=== PATIENT | male | born 1940 | race Caucasian/White ===

== ENCOUNTER 2024-07-27 14:22 | Inpatient (IN) | payer MEDICARE, SELFPAY ==
[2024-07-27] VITALS (8 sets, daily range): BP systolic 119–133; BP diastolic 56–80; PULSE 66–74; RESP 12–25; TEMP 36.3–36.4; O2SAT 99–100; BMI 25.9; BMI 25.7
--- NOTE | 2024-07-27 18:14 | EDS_ITS ---
HPI History of Present Illness Chief Complaint: Abn Labs [facility] Medical History (Updated 07/27/24 @ 16:[address] Collin Shaikh MD) HANNAH (acute kidney injury) Iron deficiency anemia due to chronic blood loss Encounter for chemotherapy management Encounter for education Anemia Hearing loss Diabetes Regional lymph node metastasis present [place] High cholesterol Kidney disease Home Medications ?Medication ?Instructions ?Recorded ?Last Taken ?Type aspirin 81 mg tablet,delayed 81 mg PO DAILY 05/08/24 Unknown History release (Adult Low Dose Aspirin) atorvastatin 40 mg tablet 40 mg PO DAILY 05/08/24 Unknown History pioglitazone 15 mg tablet 15 mg PO DAILY 05/08/24 Unknown History ondansetron 4 mg disintegrating 4 mg PO Q8H PRN nausea and 05/24/24 Unknown Rx tablet vomiting #30 tabs Allergy/AdvReac Type Severity Reaction Status Date / Time No Known Allergies Allergy Verified 07/27/24 14:26 Surgical History PEG (percutaneous endoscopic gastrostomy) status History of embolic filter insertion History of left knee replacement History of tonsillectomy Social History household members: spouse current occupational status: retired Smoking Status: Former smoker quit date: 11/08/69 alcohol intake: never EXAM Physical Exam Const Vital Signs: 07/27/24 14:23 07/27/24 16:22 Temperature 97.6 F L Temperature Source Temporal Pulse Rate 73 66 Respiratory Rate 15 18 Blood Pressure 125/56 H 130/56 H Blood Pressure Mean 79 80 Pulse Ox 100 99 Oxygen Delivery Method Room Air Room Air MDM MDM MDM Narrative Medical decision making narrative: HISTORY OF PRESENT ILLNESS: 83-year-old male presents with concern for abnormal labs. Per triage note patient was getting blood work done to see if he can start chemo. Labs showed kidney dysfunction. REVIEW OF SYSTEMS: Pertinent positives: Abnormal labs Pertinent negatives: Headache, chest pain, abdominal pain, decreased urination, back pain, fever, PHYSICAL EXAM: Nursing triage notes reviewed, Vital signs reviewed Constitutional: please see mdm HENT: MMM Eyes: Pupils equal round and reactive to light, Extraocular muscles intact Neck: No stridor, no JVD, full neck ROM Lungs: Clear to auscultation, No wheezing or rales. No increased work of breathing, no conversational dyspnea, no accessory muscle use, no nasal flaring. No respiratory distress noted Heart: Regular rate and rhythm, No murmurs, No rubs and No gallops, 2+ distal pulses (radial, femoral, posterior tibial) in all extremities Abdomen: Soft, there is no tenderness, rigidity, rebound or guarding, no obvious peritoneal signs, no palpable pulsatile abdominal masses, no auscultated abdominal bruit : No CVAT Extremities: No edema Neuro: No focal neurological deficits, cranial nerves II through XII intact, 5/5 strength in all extremities. Intact sensation to light touch in all extremities, 2+ reflexes bilateral patella tendons. Normal gait. No ataxia. Skin: No rash or lesions noted MEDICAL DECISION MAKING: Chief Complaint: Abnormal labs External records reviewed: Labs reviewed from earlier today. CBC showed no leukocytosis, severe anemia worse from prior, no thrombocytopenia BMP showed significant BUN/creatinine elevation with a BUN of 132 and creatinine of 4 up from a baseline of BUN of 58 and creatinine 1.82 magnesium was also elevated Factors affecting care: Hypopharyngeal cancer, lymph node metastasis Consults: Internal medicine MDM Narrative: The patient was initially hemodynamically stable, afebrile and nontoxic- appearing. Exam unremarkable. After review of prior labs concern for severe acute kidney injury. Will admit the patient for fluid resuscitation and further studies. Discussed with hospitalist Dr. oNe who accept the patient. She requested to place a Mejias, add a stool occult blood sample which was done. Patient was appropriate for floor admission. The patient and/or family, caregivers express understanding. The patient and/or family, caregivers agrees with the plan. Shared decision making: I will have a discussion with the patient and or visitors regarding risk/benefits of further testing or admission. They will be made aware of of the risk/benefits inherent in this decision they will be given the opportunity to voice understanding. Total critical care time today provided was at least 0 minutes. This excludes separately billable procedures. Critical care time (if documented) is secondary to the patient having high probability of clinically significant/life threatening deterioration in the patient's condition which required my urgent intervention. Impression: 1. History of cancer 2. HANNAH on CKD 3. Tachypnea Dispo: Admit to floor This note was generated with [employer] dictation software. It may contain incorrect words, spelling, and punctuation that were not noted in review of the chart prior to signing. Discharge Plan Triage Chief Complaint: Abn Labs ED Provider: Eric Rodriguez Dx/Rx/DC Orders Primary Care Provider: Salty Melchor
--- NOTE | 2024-07-27 19:11 | PCM.HP.STD ---
HPI - General General Date of Admission: 07/27/24 Date of Service: 07/27/24 Chief Complaint: Abnormal labs HPI Narrative VINITA GRACE, is a 83 M who presented to the emergency department at [facility] on 07/27/2024 at the direction of his oncologist (Dr. Shaikh) for abnormal labs. 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 ENT recommended postoperative radiation and consideration for chemotherapy sensitization therapy. He did have neoadjuvant chemo radiation but only after 1 week of therapy needed urgent total laryngectomy. He was being evaluated by oncology today and plan was to start adjuvant radiation on July 31, 2024 with reevaluation for chemosensitization today by oncology. Unfortunately his labs revealed HANNAH on CKD and decreased performance status so he was sent to the emergency department for evaluation of his HANNAH. Based on his finding of HANNAH today, oncology did not feel that he was a candidate for pilot station based chemosensitization and current plan is to proceed with adjuvant radiation therapy. He is currently tube feed dependent and states he takes 5 cans daily but of unknown type of tube feed and he is unsure how much free water he is currently getting. Vital signs on presentation demonstrated temperature of 97.6, heart rate 73, respiratory rate 15, blood pressure of 125/56 and pulse ox is 100% on room air. CBC shows a normal white count however he is anemic with a hemoglobin of 7.3 down from 8.4 on 05/24/2024. This is normocytic. Platelet count is normal. Chemistry panel shows a normal electrolytes however his BUN is markedly elevated at 132 with a creatinine of 4.02. (Baseline creatinine appears to be between 1.7 and 1.85 as of recently). Serum glucose was elevated at 134 and he is diabetic. With his drop in hemoglobin I have asked the emergency department to obtain a guaiac and it is pending at the time of admission. UA is also pending. I recommended that a Mejias be placed in emergency department and this was performed. He was given IV fluids and request for admission was made. [facility] Medical History (Updated 07/27/24 @ 20:[address] Yuki Noe DO) CKD stage 3b, GFR 30-44 ml/min HANNAH (acute kidney injury) Iron deficiency anemia due to chronic blood loss Encounter for chemotherapy management Encounter for education Anemia Hearing loss Diabetes Regional lymph node metastasis present [place] High cholesterol Kidney disease Home Medications ?Medication ?Instructions ?Recorded ?Last Taken ?Type aspirin 81 mg tablet,delayed 81 mg PO DAILY 05/08/24 Unknown History release (Adult Low Dose Aspirin) atorvastatin 40 mg tablet 40 mg PO DAILY 05/08/24 Unknown History pioglitazone 15 mg tablet 15 mg PO DAILY 05/08/24 Unknown History ondansetron 4 mg disintegrating 4 mg PO Q8H PRN nausea and 05/24/24 Unknown Rx tablet vomiting #30 tabs Allergy/AdvReac Type Severity Reaction Status Date / Time No Known Allergies Allergy Verified 07/27/24 14:26 unable to obtain Surgical History (Updated 07/27/24 @ 19:[address] Yuki Noe DO) History of tracheostomy H/O partial thyroidectomy History of radical neck dissection PEG (percutaneous endoscopic gastrostomy) status History of embolic filter insertion History of left knee replacement History of tonsillectomy Social History (Updated 07/27/24 @ 19:[address] Yuki Noe DO) household members: spouse housing: house current occupational status: retired Smoking Status: Former smoker quit date: 11/08/69 alcohol intake: former details: Quit drinking in 2012 substance use type: does not use ROS Constitutional Constitutional: Denies anorexia, change in weight, chills, fatigue, fever(s), malaise, night sweats, weakness or other Eyes Eyes: Denies blurry vision, change in eye color, change in vision, discharge from eye(s), double vision, erythema, eye pain, loss of vision or other ENT HEENT: Denies abnormal hearing, dysphagia, ear pain, epistaxis, headache(s), hearing loss, nasal congestion, nasal discharge, post nasal drip, sinus pressure, sore throat or other Cardiovascular Cardiovascular: Denies chest pain, claudication, dyspnea on exertion, edema, lightheadedness, orthopnea, palpitations, paroxysmal nocturnal dyspnea, rapid heart rate, syncope or other Respiratory/Chest Respiratory/Chest: Denies cough, dyspnea, excessive phlegm production, hemoptysis, productive cough, shortness of breath at rest, shortness of breath with exertion, wheezing or other Gastrointestinal Gastrointestinal: Denies abdominal pain, coffee ground emesis, constipation, diarrhea, dyspepsia, hematemesis, hematochezia, loose stools, melena, nausea, vomiting or other Genitourinary Genitourinary: Denies burning urination, difficulty urinating, dysuria, hematuria, nocturia, urinary frequency, urinary hesitancy, urinary incontinence, urinary urgency or other Musculoskeletal Musculoskeletal: Denies arthralgias, back pain, joint pain, joint stiffness, joint swelling, myalgias, neck pain or other Neurologic Neurologic: Denies abnormal gait, abnormal speech, confusion, disequilibrium, dizziness, focal weakness, headache(s), numbness, paresthesias, seizure-like activity, seizures, syncope, tingling, tremor(s) or other Psychiatric Psychiatric: Denies anxiety, depression, homicidal ideation, suicidal ideation or other Endocrine Endocrinology: Denies change in body appearance, cold intolerance, excessive sweating, heat intolerance, polydipsia, polyuria or other Hematologic/Lymphatic Hematologic/Lymphatic: Denies anemia, easy bleeding, easy bruising, lymphadenopathy or other Allergic/Immunologic Allergic/Immunologic: Denies rhinitis, hives, eczemia, asthma or other Vital Signs Vital Signs Vital Signs: 07/27/24 14:23 07/27/24 16:22 Temperature 97.6 F L Temperature Source Temporal Pulse Rate 73 66 Respiratory Rate 15 18 Blood Pressure 125/56 H 130/56 H Blood Pressure Mean 79 80 Pulse Ox 100 99 Oxygen Delivery Method Room Air Room Air Weight Weight: 68.492 kg Body Mass Index (BMI) 25.9 Physical Exam Const alert, oriented x3, no apparent distress and average body habitus; Negative for healthy appearing Constitutional Narrative: Elderly, white male, lying in bed, tracheostomy in place and patient is unable to phonate however answers questions by shaking head and writing down information General Appearance: cooperative HEENT normocephalic, head/scalp atraumatic and hearing grossly normal bilaterally HEENT Narrative: Mucous membranes are slightly dry and thrush is noted, Mallampati 3 Eyes PERRL and EOMs intact bilaterally; Negative for conjunctivae normal Eyes Narrative: Conjunctiva are pale bilaterally, no scleral icterus Neck supple Neck Narrative: Tracheostomy in place with capping device but this is not a speaking valve, no significant drainage, trachea midline Resp normal respiratory effort, no retractions, no use of accessory muscles and clear to auscultation bilaterally Auscultation: Negative for rales, rhonchi or wheezes Cardio regular rate, regular rhythm, S1 normal heart sound, S2 normal heart sound, no murmurs, no rub, no gallops and no clicks GI normal to inspection, nondistended, normoactive bowel sounds, soft to palpation and non-tender GI Narrative: PEG tube in place with no significant drainage around insertion site Extremity Extremity Narrative: 1+ pitting edema bilateral lower extremities to knees, pitting is doughy in nature, no cyanosis or clubbing Skin Skin Narrative: Skin is pale Neuro oriented x3, moves all extremities and no focal motor deficits Neuro Narrative: Patient is unable to speak verbally Speech: Negative for speech normal Psych Psych Narrative: Appears frustrated but interacts appropriately Assessment & Plan Assessment/Plan (1) HANNAH (acute kidney injury): (2) Iron deficiency anemia due to chronic blood loss: (3) Regional lymph node metastasis present: (4) Cancer of overlapping sites of hypopharynx: (5) Edema: (6) Thrush: PLAN: Plan HANNAH on CKD stage IIIb -Baseline serum creatinine appears to run between 1.7 and 1.85 -Serum creatinine on admission was greater than 4 -UA is pending -Will check urine sodium and creatinine -Check retroperitoneal ultrasound -Mejias placed -Will initially treat with aggressive hydration giving IV fluids at 125 cc/h with LR -Repeat BMP in a.m. -No current need for PILLOWCASE CUTTER -Electrolytes are all stable and patient without acidosis -Unclear how much free water patient is getting via his PEG -Patient states he has been tolerating tube feeds well and having no nausea or vomiting and no insensible losses -It does appear that he follows up with nephrology as an outpatient in [place] -Previous renal biopsy done in 2015 showed mainly renal medullary with small fragment of cortical medullary junction having glomerular changes diagnostic of IgA nephropathy -Was previously treated with prednisone -Will consult nephrology in light of his previous history of IgA nephropathy Acute on chronic anemia -Recent hemoglobin has been between 8 and 9 -Hemoglobin on presentation is 7.3 and the thought is that he is dehydrated so I do anticipate his counts will drop -Guaiac is pending -Iron studies are pending -Has previously been iron deficient -Start Protonix IV 40 mg twice daily -Recent PEG placement so could have irritation around PEG site -Patient is not anticoagulated other than aspirin and will hold for now -Type and screen -May need GI involvement depending on the above -Will cycle hemoglobin every 6 Bilateral lower extremity edema -May be related to malnutrition -High risk for DVT with malignancy -Check bilateral lower extremity Dopplers -Patient is on Actos which may also contribute to edema in the lower extremities Oral thrush -Nystatin swish and spit 4 times daily x 7 days 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, 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, M0) -Management per radiation therapy and chemotherapy -Per most recent documentation from oncology today he is not a candidate for chemosensitization with pilot station therapy and current plan will be for radiation therapy which is to be initiated on 07/31/2024 -Remote history of alcohol and tobacco abuse -Currently has PEG tube for feeding -Patient unclear of tube feed for free water -Consult dietitian for assistance History of IgA nephropathy -See above Hyperlipidemia -Hold home atorvastatin DM-2 -Hold home Actos -SSI -Accu-Cheks as ordered DVT prophylaxis -Will hold chemoprophylaxis for now given anemia -SCDs CODE STATUS -Full code for now however further conversation needs to be held when his is present as he deferred his in the emergency department and she was not there Charges/Coding Visit Charges Inpatient E&M: 96657 Init Hosp L3
[2024-07-27] MEDS: 0.9% Normal Saline (1000mL) 1,000 ML 999 ML IV (19:42)
[2024-07-27] MEDS: Lidocaine Jelly 2% 20 ML Syringe (URO-JET) 1 APPLIC TOPICAL (19:42)
--- NOTE | 2024-07-27 20:12 | ED.RN ---
Pt did not want to go over med list with this RN, pt wrote his will be coming tomorrow and was waving his notepad around and would hardly let this RN look at it.
[2024-07-27 20:14] LABS: Bacteria 0 SEEN /hpf (None Seen); Mucous, Urine 0 SEEN /hpf (<or=2+)
[2024-07-27 20:17] LABS: Color, Urine Yellow (Yellow); Glucose, Dipstick Normal (Normal); Ketone-Dipstick Negative (Negative); Leukocyte Esterase-Dipstick Negative /ul (Negative); Nitrite-Dipstick Negative (Negative); Occult Blood-Urine 250 /ul (Negative); Protein-Dipstick 500 mg/dl (Negative); Specific Gravity, Urine 1.015 (1.002-1.030); Urine Bilirubin Dipstick Negative (Negative); Urine Clarity Clear (Clear); Urine Urobilinogen Normal (Normal)
[2024-07-27 20:25] LABS: Red Blood Cells-Urine 5-10 SEEN /hpf (0-5); Squamous Epithelial Cells - UA 0-5 SEEN /hpf (0-5); White Blood Cells 10-25 SEEN /hpf (0-5)
[2024-07-27 20:32] LABS: Ferritin 194 ng/mL (26-388); Iron 15 ug/dL (65-175); Iron Binding Capacity,Total 221 ug/dL (250-450); PERCENT IRON SATURATION 6.8 % (15.0-55.0)
--- NOTE | 2024-07-27 21:00 | VDLE_ITS ---
Reason For Study: Bilateral leg swelling RIGHT LEFT GSV is normal. GSV is normal. CFV is compressible, spontaneous, phasic, CFV is compressible, spontaneous, phasic, competent and demonstrates normal competent, and demonstrates normal augmentation. augmentation. FV is compressible, spontaneous, phasic, FV is compressible, spontaneous, phasic, competent and demonstrates normal competent and demonstrates normal augmentation. augmentation. POP V is compressible, spontaneous, phasic, POP V is compressible, spontaneous, phasic, competent and demonstrates normal competent and demonstrates normal augmentation. augmentation. T/P Trunk is compressible. T/P Trunk is compressible. PTV is compressible. PTV is compressible. RT PerV is compressible. LT PerV is compressible. Procedure This is a venous duplex using B-mode, color flow and spectral Doppler. Exam performed portable in patient room. A preliminary report was called and/or faxed to [facility]. VL/Venous Duplex US - Dean Extrem Interpretation Summary Deep veins of the bilateral lower extremities are patent and compressible segme ntally. There is no evidence of bilateral lower extremity deep vein thrombosis. The bilateral great saphenous veins appear patent and compressible segmentally. Ordering Physician: Yuki Noe Referring Physician: Salty Melchor Performed By: Sruthi Bermudez RVT
--- NOTE | 2024-07-27 21:00 | US_ITS ---
EXAM: US RETROPERITONEAL LIMITED, RENAL CLINICAL INDICATION: sylvia TECHNIQUE: Limited grayscale and color Doppler sonographic evaluation of the retroperitoneum was performed. COMPARISON: No relevant prior studies available. FINDINGS: RIGHT KIDNEY: Unremarkable. No perinephric collection is demonstrated. Right kidney measures 9.4 cm length. Left kidney measures 9.8 cm length. No renal stones, masses or hydronephrosis. LEFT KIDNEY: See above. BLADDER: Bladder is decompressed with Mejias catheter in place. US/Kidney and Bladder IMPRESSION: Unremarkable kidneys. Decompressed bladder. Electronically Signed: Clive Montes MD at 2:45 EDT ,
[2024-07-27] MEDS: Pantoprazole Sodium 40 MG in 0.9% Normal Saline (100mL MB+) 100 ML 330 MG IV (21:51)
[2024-07-27] MEDS: Lactated Ringers 1,000 ML 125 ML IV (21:52)
[2024-07-27 22:22] LABS: Bedside Glucose 119 mg/dL (74-106)
[2024-07-28] VITALS (12 sets, daily range): BP systolic 120–143; BP diastolic 56–73; PULSE 60–71; RESP 16–20; TEMP 36.4–36.9; O2SAT 91–100
[2024-07-28 01:06] LABS: Hemoglobin 6.6 g/dL (13.0-16.5)
--- NOTE | 2024-07-28 02:03 | PCM.HOSP.N ---
Hospitalist Note Repeat Hgb 6.6, will order 2 u PRBC.
[2024-07-28] MEDS: 0.9% Saline Lock 10 ML Syringe IV (04:35)
[2024-07-28 08:55] LABS: Urine Sodium 36 mmol/L (Not Establ.)
[2024-07-28] MEDS: Nystatin 500,000 UNIT/5 ML PO.SYRINGE (WCH) 500000 UNIT PO (09:55)
[2024-07-28] MEDS: Lactated Ringers 1,000 ML 125 ML IV ×2 (09:55→21:44)
[2024-07-28] MEDS: Pantoprazole Sodium 40 MG in 0.9% Normal Saline (100mL MB+) 100 ML 330 MG IV ×2 (09:55→21:23)
--- NOTE | 2024-07-28 12:02 | PCM.PN.HOSP ---
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 Patient did not answer any questions for me as he has difficulty speaking after his recent procedures for his throat cancer. He was able to nod or shake his head for my questions. He denied any acute pain or discomfort but did feel very fatigued. His noted that he did appear more fatigued than his normal. She states that home health care has been following for him and last time he was hospitalized, it seems like his strength diminished quickly during the hospitalization. He and did note he was having some urine output. No other new concerns today. Objective Data Objective Data Vital Signs: Vital Signs Temp Pulse Resp BP Pulse Ox O2 Del Method 97.8 F 65 16 125/69 H 92 Room Air 07/28/24 08:57 07/28/24 08:57 07/28/24 08:57 07/28/24 08:57 07/28/24 08:57 07/28/24 09:07 Oxygen Delivery Method Room Air Weight: 68.1 kg Body Mass Index (BMI) 25.7 Intake & Output: Intake and Output for Last 24 Hours 07/26/24 07/27/24 07/28/24 23:59 23:59 23:59 Intake Total 1110 / 1110 1142.67 / 1142.67 Output Total 700 / 700 Balance 410 / 410 1142.67 / 1142.67 Lab / Micro Data 07/28/24 12:24 07/28/24 12:24 Labs: Laboratory Results - last 24 hr 07/27/24 08:25: Ur Random Sodium 36, Urine Creatinine 49.40 07/27/24 19:37: Hgb 7.0 L, Iron 15 L, TIBC 221 L, Iron Saturation 6.8 L, Ferritin 194, Blood Type B POSITIVE, Antibody Screen NEGATIVE, Crossmatch See Detail 07/27/24 19:55: Urine Color Yellow, Urine Clarity Clear, Urine pH 8.0, Ur Specific Muse 1.015, Urine Protein 500 H, Urine Glucose (UA) Normal, Urine Ketones Negative, Urine Occult Blood 250 H, Urine Nitrite Negative, Urine Bilirubin Negative, Urine Urobilinogen Normal, Ur Leukocyte Esterase Negative, Urine RBC 5-10 SEEN, Urine WBC 10-25 SEEN, Ur Squamous Epith Cells 0-5 SEEN, Urine Bacteria 0 SEEN, Urine Mucus 0 SEEN 07/27/24 22:02: POC Glucose 119 H 07/28/24 00:56: Hgb 6.6 L Micro: Microbiology 07/27/24 19:37 Stool Stool Occult Blood (ZACH) - Final Occult Blood Positive Radiography Diagnostic Testing: Radiology Impression Renal Ultrasound 07/27/24 21:00 IMPRESSION: Unremarkable kidneys. Decompressed bladder. Electronically Signed: Clive Montes MD at 2:45 EDT , Physical Exam Const alert, no apparent distress and average body habitus Constitutional Narrative: Elderly male, lying in bed, tracheostomy in place and patient unable to phonate however can answer questions by nodding or shaking his head. General Appearance: cooperative and comfortable HEENT normocephalic, head/scalp atraumatic, hearing grossly normal bilaterally and nasal mucous membranes and turbinates normal HEENT Narrative: Oral thrush noted. Eyes PERRL, EOMs intact bilaterally and conjunctivae normal Neck full ROM Neck Narrative: Tracheostomy in place with capping device but this is not a speaking valve, no drainage noted. Chest inspection of chest normal Resp normal respiratory effort, normal air movement, no use of accessory muscles and clear to auscultation bilaterally Cardio regular rate, regular rhythm, no murmurs and peripheral pulses 2+ throughout GI normal to inspection, nondistended, normoactive bowel sounds, soft to palpation, non-tender and non-distended Back/Spine normal ROM Extremity normal to inspection and full ROM Extremity Narrative: 1+ pitting edema in bilateral lower extremities, stable. Skin no rashes or lesions noted Neuro moves all extremities Sensorium / Orientation: awake and alert Psych mental status grossly normal Assessment & Plan Assessment/Plan (1) HANNAH (acute kidney injury): (2) Iron deficiency anemia due to chronic blood loss: (3) Thrush: (4) Edema: PLAN: Plan Patient is an 83-year-old male who presented [facility] ED on 07/27/2024 from the oncologist office with abnormal labs. 1. HANNAH on CKD stage IIIb, history of IgA nephropathy ? Nephrology following. Creatinine 4.02 on admit, baseline around 1.8. BUN 132. Renal ultrasound unremarkable. UA shows some protein and blood but this notably was a Mejias stable. IV fluid resuscitation given on admission, repeat creatinine 3.77 and BUN 110 on hospital day 2. Notably with history of IgA nephropathy back in 2014 confirmed on renal biopsy, was treated with prednisone then with improvement. Follows with outpatient nephrology in [place]. Patient notably was recently on Augmentin for surgical site infection and noticed itching with this; have concern for possible AIN versus typical prerenal etiology from fluid losses. Per nephro, if no significant improvement by tomorrow, will plan to start steroids. Monitor daily BMP and urine output. 2. Acute on chronic anemia ? GI consulted. Hemoglobin 7.3 on admit, dropped to 6.6 with IV fluid resuscitation. Baseline hemoglobin recently appears to be 8-9. S/p 2 units of packed red blood cells with repeat hemoglobin 9.2. Given high BUN and positive stool occult sample, have some concern for possible GI bleed. Monitor CBC daily. N.p.o. at midnight (hold tube feeds) for possible EGD tomorrow. Continue IV PPI twice daily for now. 3. Squamous of carcinoma of the hypopharynx ? Follows with outpatient oncology. Diagnosed in April 2024. Had selective radiation therapy and carboplatin chemosensitization on 05/24. S/p total laryngectomy with left hemithyroidectomy and left selective neck dissection on 06/20. Tracheostomy in place and PEG tube in for feedings. Plan was for postoperative radiation therapy sometime soon. Saw Oncology in the office on day of admission who noted that given his worsening status and chronic medical issues, he is no longer a candidate for [place] based chemotherapy. Outpatient follow up after discharge. 4. Bilateral lower extremity edema ? May be related to malnutrition but cannot rule out DVT. Lower extremity Dopplers ordered. 5. Oral thrush ? Nystatin swish and spit 4 times daily for 7 days. 6. Acute on chronic debility ? PT/OT/case management following. Chronic medical conditions: ? Hyperlipidemia: Holding home atorvastatin. ? Type 2 diabetes mellitus: Holding home Actos. Continue sliding scale insulin while inpatient. DVT prophylaxis: SCDs CODE STATUS: Full code, verified Expected disposition: TBD Total clinical time spent by myself addressing the patient's medical issues, reviewing all the data, and collaborating with patient's care team: 35 minutes. Charges/Coding Visit Charges Inpatient E&M: 13979 Subs Hosp L2
[2024-07-28 12:31] LABS: Hematocrit 29.8 % (40-54); Hemoglobin 9.2 g/dL (13.0-16.5); Mean Corp Hgb Conc 30.9 g/dL (32-36); Mean Corpuscular Hgb 26.4 pg (27.0-32.0); Mean Corpuscular Volume 85.4 fL (80-94); Mean Platelet Vol. 10.2 fl (6.2-12.0); Platelet Count 265 K/mm3 (150-450); RBC Distribution Width CV 15.8 % (11.6-14.6); RBC Distribution Width SD 49.2 fl (35.1-43.9); Red Blood Count 3.49 M/mm3 (4.6-6.2); White Blood Count 8.1 K/mm3 (4.4-11.0)
--- NOTE | 2024-07-28 13:07 | PCM.CONS.R ---
Assessment & Plan Assessment/Plan (1) HANNAH (acute kidney injury): PLAN: History of CKD stage IIIb. Baseline creatinine around 1.8 or so. Came with a creatinine of 4.0. No urinary symptoms prior to coming in. I reviewed his records from [facility]. He was discharged from there on the sixth. At that time his creatinine was 1.8. Renal ultrasound without any hydronephrosis. Urine analysis shows some protein, blood, possible this is a Dangelo sample. Hemoglobin was around 7.7 at the time of discharge, stable with a hemoglobin less than 7, s/p PRBC. It is possible this is prerenal HANNAH. He was started on Augmentin for surgical site infection. Has been on it since hospitalization. noticed more itching over the last several days. Differential diagnosis include prerenal from severe anemia versus Augmentin related AIN. Continue IV fluids. Follow-up on labs from today. If creatinine is better today with blood transfusion and IV fluids, likely prerenal. If creatinine continues to worsen, I may consider a short course of steroids just in case this is Augmentin related AIN. As per he has taken penicillins before but she is not sure if he took Augmentin before. Okay to DC Dangelo catheter. Discussed with hospitalist. HPI Consult Data Date of Consult: 07/28/24 HPI Narrative Reason for Consultation: Acute renal failure HPI Narrative: VINITA GRACE, is a 83 M who presents to the hospital with acute renal failure. Nephrology on consultation for acute on chronic renal failure. Somewhat complicated medical history recently. 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 Initially was supposed to get radiation, in June he was admitted at [facility] for laryngectomy, hemithyroidectomy, PEG tube placement for nutrition. He was being considered for chemo and radiation. Saw oncology for potential chemosensitization treatment before radiation. Protein to lab work showed creatinine of 4 and she was referred to the emergency room. He has known history of biopsy-proven IgA nephropathy, from a biopsy from 2014. Recently has not been on any treatment. Baseline creatinine around 1.8. Reviewed records from [facility]. When he was discharged from [facility] on the sixth of this month his creatinine was 1.8. Hemoglobin at that time was 7.7. He denies any obvious blood loss. Denies any urinary complaint such as dysuria, hematuria. He has been itching according to the . No obvious rash. He was prescribed Augmentin for surgical site infection. Reviewed medication list from discharge summary. As per , Zoloft was started about a month ago and he has been taking it on and off. Other than Augmentin and Zoloft, there is no other new medications. Denies taking NSAIDs. Currently appears comfortable. Received blood transfusion overnight. Labs from today are pending. [facility] Medical History CKD stage 3b, GFR 30-44 ml/min HANNAH (acute kidney injury) Iron deficiency anemia due to chronic blood loss Encounter for chemotherapy management Encounter for education Anemia Hearing loss Diabetes Regional lymph node metastasis present [place] High cholesterol Kidney disease Home Medications ?Medication ?Instructions ?Recorded ?Last Taken ?Type aspirin 81 mg tablet,delayed 81 mg feeding tube DAILY heart 05/08/24 Unknown History release (Adult Low Dose Aspirin) atorvastatin 40 mg tablet 40 mg feeding tube DAILY to lower 05/08/24 Unknown History cholesterol pioglitazone 15 mg tablet 15 mg feeding tube DAILY unknown 05/08/24 Unknown History Allergy/AdvReac Type Severity Reaction Status Date / Time No Known Allergies Allergy Verified 07/27/24 14:26 Family History unable to obtain Surgical History History of tracheostomy H/O partial thyroidectomy History of radical neck dissection PEG (percutaneous endoscopic gastrostomy) status History of embolic filter insertion History of left knee replacement History of tonsillectomy Social History (Updated 07/27/24 @ 19:[address] Yuki Noe, DO) household members: spouse housing: house current occupational status: retired Smoking Status: Former smoker quit date: 11/08/69 alcohol intake: former details: Quit drinking in 2012 substance use type: does not use ROS ROS Narrative Negative except above Physical Exam Narrative Alert awake oriented x 3 no obvious distress no JVD s1s2 no murmurs lungs clear abdomen soft no organomegaly no edema no cyanosis dangelo + Lab / Micro Data 07/28/24 12:24 07/28/24 12:24 Labs: Laboratory Results - last 24 hr 07/27/24 08:25: Ur Random Sodium 36, Urine Creatinine 49.40 07/27/24 19:37: Hgb 7.0 L, Iron 15 L, TIBC 221 L, Iron Saturation 6.8 L, Ferritin 194, Blood Type B POSITIVE, Antibody Screen NEGATIVE, Crossmatch See Detail 07/27/24 19:55: Urine Color Yellow, Urine Clarity Clear, Urine pH 8.0, Ur Specific [place] 1.015, Urine Protein 500 H, Urine Glucose (UA) Normal, Urine Ketones Negative, Urine Occult Blood 250 H, Urine Nitrite Negative, Urine Bilirubin Negative, Urine Urobilinogen Normal, Ur Leukocyte Esterase Negative, Urine RBC 5-10 SEEN, Urine WBC 10-25 SEEN, Ur Squamous Epith Cells 0-5 SEEN, Urine Bacteria 0 SEEN, Urine Mucus 0 SEEN 07/27/24 22:02: POC Glucose 119 H 07/28/24 00:56: Hgb 6.6 L 07/28/24 12:24: WBC 8.1, RBC 3.49 L, Hgb 9.2 L, Hct 29.8 L, MCV 85.4, MCH 26.4 L, MCHC 30.9 L, RDW Std Deviation 49.2 H, RDW Coeff of Noa 15.8 H, Plt Count 265, MPV 10.2 Micro: Microbiology 07/27/24 19:37 Stool Stool Occult Blood (ZACH) - Final Occult Blood Positive Imaging Radiology Impression Renal Ultrasound 07/27/24 21:00 IMPRESSION: Unremarkable kidneys. Decompressed bladder. Electronically Signed: Clive Montes MD at 2:45 EDT ,
[2024-07-28 13:12] LABS: ALB/GLOB Ratio 0.5 RATIO (0.9-2.4); AST(SGOT) 11 U/L (15-37); Alanine Aminotransfer ALT/SGPT 10 U/L (16-61); Albumin, Serum 2.3 g/dL (3.2-5.0); Alkaline Phosphatase 67 U/L (45-117); Anion Gap 9 (5-15); BUN 110 mg/dL (7-18); BUN/Creat Ratio 29.2 RATIO (10-20); Chloride 108 mmol/L (98-107); Creatinine, Serum 3.77 mg/dL (0.70-1.30); EST Glomerular Filtration Rate 16 mL/min (>60); Est Glom Filt Rate - Afr Amer 20 mL/min (>60); Estimated Creatinine Clearance 12.43 ml/min; Globulin 4.5 g/dL (2.2-4.2); Glucose 111 mg/dL (74-106); Magnesium 2.9 mg/dL (1.6-2.6); Phosphorus 3.9 mg/dL (2.5-4.9); Potassium 4.3 mmol/L (3.5-5.1); Protein, Total 6.8 g/dL (6.4-8.2); Sodium Level 140 mmol/L (136-145)
[2024-07-28 13:38] LABS: Bedside Glucose 105 mg/dL (74-106)
--- NOTE | 2024-07-28 15:40 | CASEMGMT ---
COLEMAN CHAIDEZ Assessment: Face to Face with pt for initial transition planning/care coordination assessment. COLEMAN CHAIDEZ introduced self and role at [facility], pt acknowledges understanding and consents to assessment but gives permission for who is present at bedside to answer questions as pt was napping. Care providers, pharmacy, and demographics verified/updated. Admitting Dx: HANNAH/Anemia Strata Score: 2 PCP:Ruiz Specialists:Hawa, onc; deloris Rendon Pharmacy: [facility] Insurance: [facility] Prescription Benefit: yes LNOK: Monisha Gordillo, Living Arrangements: Pt lives with in a two story home with 1 step to enter. Pt has FFSU. reports until 2 wks ago, pt was I in ADLs. Pt provides IADL assistance. Transportation: Pt drove until approx 1 month ago. Pt transports pt to medical appts. DME:cane, walker, BGM with sufficient supply of strips and lancets, tube feed supplies ( pt cannot recall where these are obtained from), trach supplies and suction machine HHC/SNF: Pt is active with HHC with SN, PT and OT per report of . Denies SNF stays. Pt states no concerns with going home at time of dc. She states they would like for HHC to resume. She denies need for a list of other options. Referral sent to via careport at this time. Pt is indep with cleaning of trach and administering TFs. No OT recommended, PT following pt. Pt states no further concerns/needs. CM to follow. Advised pt and to ask CM if any further question/concerns/needs arise, pt voices understanding. Pt/ Goal: Home with resuming HHC Plan: Home with resuming HHC pending course of hospitalization Jamie CEE CM
[2024-07-28] MEDS: Jevity 1.5. 1,000 ML Bottle 240 ML GT ×2 (16:08→21:40)
[2024-07-28 17:02] LABS: Bedside Glucose 108 mg/dL (74-106)
[2024-07-28 19:47] LABS: Bedside Glucose 130 mg/dL (74-106)
[2024-07-29 03:45] VITALS: BP 114/67; PULSE 76; RESP 19; TEMP 36.8; O2SAT 97
[2024-07-29] MEDS: Lactated Ringers 1,000 ML 125 ML IV (05:25)
[2024-07-29 05:39] LABS: Hematocrit 27.8 % (40-54); Hemoglobin 8.7 g/dL (13.0-16.5); Mean Corp Hgb Conc 31.3 g/dL (32-36); Mean Corpuscular Hgb 26.6 pg (27.0-32.0); Mean Platelet Vol. 9.9 fl (6.2-12.0); Platelet Count 254 K/mm3 (150-450); RBC Distribution Width CV 15.9 % (11.6-14.6); Red Blood Count 3.27 M/mm3 (4.6-6.2); White Blood Count 7.3 K/mm3 (4.4-11.0)
[2024-07-29 06:00] LABS: Anion Gap 8 (5-15); BUN 100 mg/dL (7-18); BUN/Creat Ratio 29.9 RATIO (10-20); Calcium,Total 8.7 mg/dL (8.5-10.1); Chloride 108 mmol/L (98-107); Creatinine, Serum 3.35 mg/dL (0.70-1.30); EST Glomerular Filtration Rate 19 mL/min (>60); Est Glom Filt Rate - Afr Amer 23 mL/min (>60); Estimated Creatinine Clearance 13.99 ml/min; Glucose 108 mg/dL (74-106); Potassium 3.8 mmol/L (3.5-5.1); Sodium Level 140 mmol/L (136-145)
--- NOTE | 2024-07-29 07:00 | EKG12_ITS ---
Test Reason : PREOP Blood Pressure : / mmHG Vent. Rate : 065 BPM Atrial Rate : 065 BPM P-R Int : 172 ms QRS Dur : 086 ms QT Int : 404 ms P-R-T Axes : -28 -15 167 degrees QTc Int : 420 ms Normal sinus rhythm Nonspecific T wave abnormality Abnormal ECG No previous ECGs available Confirmed by Michael Lemos ([id number]), script editor DAVID ISAACS ([id number]) on 07/31/2024 1:32:01 PM Referred By: CAMILA Confirmed By:Michael Lemos
[2024-07-29 07:05] LABS: Bedside Glucose 104 mg/dL (74-106)
[2024-07-29 07:17] VITALS: O2SAT 94
[2024-07-29 10:41] VITALS: BP 130/70; PULSE 65; RESP 18; TEMP 37.1; O2SAT 100
[2024-07-29] MEDS: Pantoprazole Sodium 40 MG in 0.9% Normal Saline (100mL MB+) 100 ML 330 MG IV ×2 (10:47→21:03)
--- NOTE | 2024-07-29 12:15 | PN.HOSP_ITS ---
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 Patient was sitting at the edge of the bed and appeared to have slightly more energy than yesterday. However, when asked how he was doing he shook his head when his said that he was frustrated because his tracheostomy could not be taken out and cleaned here as it normally is. Nurse was in the room and noted that nursing and respiratory therapy were not familiar with his valve and wanted to wait till Wednesday when pulmonology was in to look at it. Otherwise, patient has had some urine output and denies any dark or bloody bowel movements. No other new concerns today. Objective Data Objective Data Vital Signs: Vital Signs Temp Pulse Resp BP Pulse Ox O2 Del Method 98.7 F 65 18 130/70 H 100 Room Air 07/29/24 10:41 07/29/24 10:41 07/29/24 10:41 07/29/24 10:41 07/29/24 10:41 07/29/24 10:55 Oxygen Delivery Method Room Air Weight: 68.1 kg Body Mass Index (BMI) 25.7 Intake & Output: Intake and Output for Last 24 Hours 07/27/24 07/28/24 07/29/24 23:59 23:59 23:59 Intake Total 1110 / 1110 2362.67 / 2362.67 960.42 / 960.42 Output Total 700 / 700 850 / 850 Balance 410 / 410 1512.67 / 1512.67 960.42 / 960.42 Lab / Micro Data 07/29/24 05:04 07/29/24 05:04 Labs: Laboratory Results - last 24 hr 07/28/24 08:05: POC Glucose 108 H 07/28/24 12:24: WBC 8.1, RBC 3.49 L, Hgb 9.2 L, Hct 29.8 L, MCV 85.4, MCH 26.4 L , MCHC 30.9 L, RDW Std Deviation 49.2 H, RDW Coeff of Noa 15.8 H, Plt Count 265, MPV 10.2, Sodium 140 07/28/24 12:24: Sodium Cancelled, Potassium 4.3 07/28/24 12:24: Potassium Cancelled, Chloride 108 H 07/28/24 12:24: Chloride Cancelled, Carbon Dioxide 23.0 07/28/24 12:24: Carbon Dioxide Cancelled, Anion Gap 9, BUN 110 H* 07/28/24 12:24: BUN Cancelled, Creatinine 3.77 H 07/28/24 12:24: Creatinine Cancelled, Estim Creat Clear Calc 12.43 07/28/24 12:24: Estim Creat Clear Calc Cancelled, Est GFR (MDRD) Af Amer 20 L 07/28/24 12:24: Est GFR (MDRD) Af Amer Cancelled, Est GFR (MDRD) Non-Af 16 L 07/28/24 12:24: Est GFR (MDRD) Non-Af Cancelled, BUN/Creatinine Ratio 29.2 H 07/28/24 12:24: BUN/Creatinine Ratio Cancelled, Glucose 111 H 07/28/24 12:24: Glucose Cancelled, Calcium 9.0 07/28/24 12:24: Calcium Cancelled, Phosphorus 3.9 07/28/24 12:24: Phosphorus Cancelled, Magnesium 2.9 H, Total Bilirubin 0.60, AST 11 L, ALT 10 L, Alkaline Phosphatase 67, Total Protein 6.8, Albumin 2.3 L 07/28/24 12:24: Albumin Cancelled, Globulin 4.5 H, Albumin/Globulin Ratio 0.5 L, TSH 3.090 07/28/24 12:24: TSH Cancelled 07/28/24 13:21: POC Glucose 105 07/28/24 16:48: POC Glucose 130 H 07/29/24 05:04: WBC 7.3, RBC 3.27 L, Hgb 8.7 L, Hct 27.8 L, MCV 85.0, MCH 26.6 L , MCHC 31.3 L, RDW Std Deviation 49.0 H, RDW Coeff of Noa 15.9 H, Plt Count 254, MPV 9.9, Sodium 140, Potassium 3.8, Chloride 108 H, Carbon Dioxide 24.0, Anion Gap 8, BUN 100 H, Creatinine 3.35 H, Estim Creat Clear Calc 13.99, Est GFR (MDRD) Af Amer 23 L, Est GFR (MDRD) Non-Af 19 L, BUN/Creatinine Ratio 29.9 H, G lucose 108 H, Calcium 8.7 07/29/24 06:37: POC Glucose 104 Micro: Microbiology 07/27/24 19:37 Stool Stool Occult Blood (ZACH) - Final Occult Blood Positive Physical Exam Const alert, no apparent distress and average body habitus Constitutional Narrative: Elderly male, sitting up in bed, tracheostomy in place and patient unable to phonate however can answer questions by nodding or shaking his head, fatigued appearing but in no acute distress. General Appearance: cooperative and comfortable HEENT normocephalic, head/scalp atraumatic, hearing grossly normal bilaterally and nasal mucous membranes and turbinates normal HEENT Narrative: Oral thrush noted. Eyes PERRL, EOMs intact bilaterally and conjunctivae normal Neck full ROM Neck Narrative: Tracheostomy in place with capping device but this is not a speaking valve, no drainage noted. Chest inspection of chest normal Resp normal respiratory effort, normal air movement, no use of accessory muscles and clear to auscultation bilaterally Cardio regular rate, regular rhythm, no murmurs and peripheral pulses 2+ throughout GI normal to inspection, nondistended, normoactive bowel sounds, soft to palpation, non-tender and non-distended Back/Spine normal ROM Extremity normal to inspection and full ROM Extremity Narrative: 1+ pitting edema in bilateral lower extremities, stable. Skin no rashes or lesions noted Neuro moves all extremities Sensorium / Orientation: awake and alert Psych mental status grossly normal Assessment & Plan Assessment/Plan (1) HANNAH (acute kidney injury): (2) Iron deficiency anemia due to chronic blood loss: (3) Thrush: (4) Edema: PLAN: Plan Patient is an 83-year-old male who presented [facility] ED on 07/27/2024 from the oncologist office with abnormal labs. 1. HANNAH on CKD stage IIIb, history of IgA nephropathy ? Nephrology following. Creatinine 4.02 on admit, baseline around 1.8. BUN 132. Renal ultrasound unremarkable. UA shows some protein and blood but this notably was a Mejias stable. IV fluid resuscitation given on admission, repeat creatinine 3.77 and BUN 110 on hospital day 2. Notably with history of IgA nephropathy back in 2014 confirmed on renal biopsy, was treated with prednisone then with improvement. Follows with outpatient nephrology in [place]. Patient notably was recently on Augmentin for surgical site infection and noticed itching with this; have concern for possible AIN versus typical prerenal etiology from fluid losses. Most recent creatinine 3.35 on 07/29 with decent urine output. Holding on steroids at this point per nephrology. Continue to monitor daily BMP and urine output. 2. Acute on chronic anemia ? GI following. Hemoglobin 7.3 on admit, dropped to 6.6 with IV fluid resuscitation. Baseline hemoglobin recently appears to be 8-9. S/p 2 units of packed red blood cells with repeat hemoglobin 9.2. Given high BUN and positive stool occult sample, have some concern for possible GI bleed. Hemoglobin 8.7 on 07/29, remaining stable. Discussed with GI and will hold on EGD for now and monitor daily CBCs. Can continue IV PPI twice daily for now. 3. Squamous of carcinoma of the hypopharynx ? Follows with outpatient oncology. Diagnosed in April 2024. Had selective radiation therapy and carboplatin chemosensitization on 05/24. S/p total laryngectomy with left hemithyroidectomy and left selective neck dissection on 06/20. Tracheostomy in place and PEG tube in for feedings. Plan was for postoperative radiation therapy sometime soon. Saw Oncology in the office on day of admission who noted that given his worsening status and chronic medical issues, he is no longer a candidate for [place] based chemotherapy. Outpatient follow up after discharge. 4. Bilateral lower extremity edema ? May be related to malnutrition but cannot rule out DVT. Lower extremity Dopplers ordered. 5. Oral thrush ? Nystatin swish and spit 4 times daily for 7 days. 6. Acute on chronic debility ? PT/OT/case management following. Planning to resume home with home health care on discharge. Chronic medical conditions: ? Hyperlipidemia: Holding home atorvastatin. ? Type 2 diabetes mellitus: Holding home Actos. Continue sliding scale insulin while inpatient. DVT prophylaxis: SCDs CODE STATUS: Full code, verified Expected disposition: Home with home health care, 2 to 3 days Total clinical time spent by myself addressing the patient's medical issues, reviewing all the data, and collaborating with patient's care team: 35 minutes. Charges/Coding Visit Charges Inpatient E&M: 59731 Subs Hosp L2
[2024-07-29 12:43] LABS: Bedside Glucose 112 mg/dL (74-106)
--- NOTE | 2024-07-29 14:15 | CPS ---
Cleaned Lana tube after showed how she does it. used sterile was, site looks good. there is a yellowish spot on the left side under the lip of the Lana Tube that says has been there since getting the tube last month. explained the importance of using distilled or sterile water and not plain tap water. She uses tap water but boils it and cools it before cleaning. It is secured by a trach tie.
[2024-07-29 14:25] VITALS: O2SAT 97
[2024-07-29] MEDS: Jevity 1.5. 1,000 ML Bottle 240 ML GT (15:14)
[2024-07-29 16:30] VITALS: BP 135/72; PULSE 60; RESP 18; TEMP 36.7; O2SAT 100
--- NOTE | 2024-07-29 16:35 | PCM.PN.REN ---
Subjective Subjective Follow-up acute kidney injury chronic kidney disease Overall still feels fatigue Mejias catheter removed, making urine Objective Data Objective Data Vital Signs: Vital Signs Temp Pulse Resp BP Pulse Ox O2 Del Method 98.7 F 65 18 130/70 H 97 Room Air 07/29/24 10:41 07/29/24 10:41 07/29/24 10:41 07/29/24 10:41 07/29/24 14:25 07/29/24 14:25 Oxygen Delivery Method Room Air Weight: 68.1 kg Body Mass Index (BMI) 25.7 Intake & Output: Intake and Output for Last 24 Hours 07/27/24 07/28/24 07/29/24 23:59 23:59 23:59 Intake Total 1110 / 1110 2362.67 / 2362.67 2070.42 / 2070.42 Output Total 700 / 700 850 / 850 Balance 410 / 410 1512.67 / 1512.67 2070.42 / 2070.42 Lab / Micro Data 07/29/24 05:04 07/29/24 05:04 Labs: Laboratory Results - last 24 hr 07/28/24 08:05: POC Glucose 108 H 07/28/24 16:48: POC Glucose 130 H 07/29/24 05:04: WBC 7.3, RBC 3.27 L, Hgb 8.7 L, Hct 27.8 L, MCV 85.0, MCH 26.6 L, MCHC 31.3 L, RDW Std Deviation 49.0 H, RDW Coeff of Noa 15.9 H, Plt Count 254, MPV 9.9, Sodium 140, Potassium 3.8, Chloride 108 H, Carbon Dioxide 24.0, Anion Gap 8, BUN 100 H, Creatinine 3.35 H, Estim Creat Clear Calc 13.99, Est GFR (MDRD) Af Amer 23 L, Est GFR (MDRD) Non-Af 19 L, BUN/Creatinine Ratio 29.9 H, Glucose 108 H, Calcium 8.7 07/29/24 06:37: POC Glucose 104 07/29/24 12:19: POC Glucose 112 H Micro: Microbiology 07/27/24 19:37 Stool Stool Occult Blood (ZACH) - Final Occult Blood Positive Physical Exam Narrative Alert awake oriented x 3 no obvious distress no JVD s1s2 no murmurs lungs clear abdomen soft no organomegaly no edema no cyanosis No Mejias Assessment & Plan Assessment/Plan (1) HANNAH (acute kidney injury): PLAN: History of CKD stage IIIb. Baseline creatinine around 1.8 or so. Came with a creatinine of 4.0. No urinary symptoms prior to coming in. I reviewed his records from [facility]. He was discharged from there on the sixth. At that time his creatinine was 1.8. Renal ultrasound without any hydronephrosis. Urine analysis shows some protein, blood, possible this is a Mejias sample. Hemoglobin was around 7.7 at the time of discharge, stable with a hemoglobin less than 7, s/p PRBC. It is possible this is prerenal HANNAH. He was started on Augmentin for surgical site infection. Has been on it since hospitalization. noticed more itching over the last several days. Differential diagnosis include prerenal from severe anemia versus Augmentin related AIN. -Serum creatinine improved to 3.3 mg/dL -Nonoliguric -Continue with supportive care will give additional 500 cc of LR today -No need for renal placement therapy -BMP in the morning, should renal function worsens will consider steroids
[2024-07-29 17:00] LABS: Bedside Glucose 155 mg/dL (74-106)
[2024-07-29] MEDS: Lactated Ringers 1,000 ML 75 ML IV (18:47)
[2024-07-29 21:09] VITALS: BP 125/62; PULSE 68; RESP 16; TEMP 37.4; O2SAT 94
[2024-07-30 01:48] VITALS: BP 146/71; PULSE 94; RESP 16; TEMP 38.1; O2SAT 93
[2024-07-30 06:12] LABS: Hematocrit 27.7 % (40-54); Hemoglobin 8.5 g/dL (13.0-16.5); Mean Corp Hgb Conc 30.7 g/dL (32-36); Mean Corpuscular Hgb 26.3 pg (27.0-32.0); Mean Corpuscular Volume 85.8 fL (80-94); Mean Platelet Vol. 10.2 fl (6.2-12.0); Platelet Count 255 K/mm3 (150-450); RBC Distribution Width CV 15.9 % (11.6-14.6); RBC Distribution Width SD 50.3 fl (35.1-43.9); Red Blood Count 3.23 M/mm3 (4.6-6.2); White Blood Count 8.9 K/mm3 (4.4-11.0)
[2024-07-30] MEDS: Jevity 1.5. 1,000 ML Bottle 240 ML GT ×5 (06:14→23:58)
[2024-07-30 06:41] LABS: Bedside Glucose 125 mg/dL (74-106)
[2024-07-30 06:56] LABS: Anion Gap 7 (5-15); BUN 79 mg/dL (7-18); BUN/Creat Ratio 24.3 RATIO (10-20); Calcium,Total 8.2 mg/dL (8.5-10.1); Chloride 111 mmol/L (98-107); Creatinine, Serum 3.25 mg/dL (0.70-1.30); EST Glomerular Filtration Rate 19 mL/min (>60); Est Glom Filt Rate - Afr Amer 24 mL/min (>60); Estimated Creatinine Clearance 14.42 ml/min; Glucose 134 mg/dL (74-106); Potassium 3.8 mmol/L (3.5-5.1); Sodium Level 141 mmol/L (136-145)
[2024-07-30 07:19] VITALS: O2SAT 96
[2024-07-30 08:32] LABS: Bedside Glucose 199 mg/dL (74-106)
[2024-07-30 09:41] VITALS: BP 137/67; PULSE 73; RESP 18; TEMP 37.2; O2SAT 97
--- NOTE | 2024-07-30 10:22 | PCM.PN.HOSP ---
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 Patient was sitting at the edge of the bed similar to yesterday and did appear to have improved energy level today. When asked if he was feeling better today he gave a thumbs up. Has had fairly good urine output per nursing staff. Has been walking slowly around the room with no pain in his legs, and on exam today his legs do not appear swollen and are not tender to palpation. No other new concerns today. Objective Data Objective Data Vital Signs: Vital Signs Temp Pulse Resp BP Pulse Ox O2 Del Method 98.9 F 73 18 137/67 H 97 Room Air 07/30/24 09:41 07/30/24 09:41 07/30/24 09:41 07/30/24 09:41 07/30/24 09:41 07/30/24 09:41 Oxygen Delivery Method Room Air Weight: 68.1 kg Body Mass Index (BMI) 25.7 Intake & Output: Intake and Output for Last 24 Hours 07/28/24 07/29/24 07/30/24 23:59 23:59 23:59 Intake Total 2362.67 / 2362.67 2180.42 / 2180.42 1390 / 1390 Output Total 850 / 850 Balance 1512.67 / 1512.67 2180.42 / 2180.42 1390 / 1390 Lab / Micro Data 07/30/24 05:32 07/30/24 05:32 Labs: Laboratory Results - last 24 hr 07/29/24 12:19: POC Glucose 112 H 07/29/24 16:23: POC Glucose 155 H 07/30/24 05:32: WBC 8.9, RBC 3.23 L, Hgb 8.5 L, Hct 27.7 L, MCV 85.8, MCH 26.3 L, MCHC 30.7 L, RDW Std Deviation 50.3 H, RDW Coeff of Noa 15.9 H, Plt Count 255, MPV 10.2, Sodium 141, Potassium 3.8, Chloride 111 H, Carbon Dioxide 23.0, Anion Gap 7, BUN 79 H, Creatinine 3.25 H, Estim Creat Clear Calc 14.42, Est GFR (MDRD) Af Amer 24 L, Est GFR (MDRD) Non-Af 19 L, BUN/Creatinine Ratio 24.3 H, Glucose 134 H, Calcium 8.2 L 07/30/24 06:13: POC Glucose 125 H 07/30/24 08:14: POC Glucose 199 H Micro: Microbiology 07/27/24 19:37 Stool Stool Occult Blood (ZACH) - Final Occult Blood Positive Physical Exam Const alert, no apparent distress and average body habitus Constitutional Narrative: Elderly male, sitting up at edge of the bed, energy appears improved today, tracheostomy in place and patient unable to phonate however can answer questions by nodding or shaking his head, in no acute distress. General Appearance: cooperative and comfortable HEENT normocephalic, head/scalp atraumatic, hearing grossly normal bilaterally and nasal mucous membranes and turbinates normal HEENT Narrative: Oral thrush noted. Eyes PERRL, EOMs intact bilaterally and conjunctivae normal Neck full ROM Neck Narrative: Tracheostomy in place with capping device but this is not a speaking valve, no drainage noted. Chest inspection of chest normal Resp normal respiratory effort, normal air movement, no use of accessory muscles and clear to auscultation bilaterally Cardio regular rate, regular rhythm, no murmurs and peripheral pulses 2+ throughout GI normal to inspection, nondistended, normoactive bowel sounds, soft to palpation, non-tender and non-distended Back/Spine normal ROM Extremity normal to inspection and full ROM Extremity Narrative: 1+ edema noted bilaterally but no pitting noted and lower legs with no erythema or tenderness to palpation. Skin no rashes or lesions noted Neuro moves all extremities Sensorium / Orientation: awake and alert Psych mental status grossly normal Assessment & Plan Assessment/Plan (1) HANNAH (acute kidney injury): (2) Iron deficiency anemia due to chronic blood loss: (3) Thrush: (4) Edema: PLAN: Plan Patient is an 83-year-old male who presented [facility] ED on 07/27/2024 from the oncologist office with abnormal labs. 1. HANNAH on CKD stage IIIb, history of IgA nephropathy ? Nephrology following. Creatinine 4.02 on admit, baseline around 1.8. BUN 132. Renal ultrasound unremarkable. UA shows some protein and blood but this notably was a Mejias stable. IV fluid resuscitation given on admission, repeat creatinine 3.77 and BUN 110 on hospital day 2. Notably with history of IgA nephropathy back in 2014 confirmed on renal biopsy, was treated with prednisone then with improvement. Follows with outpatient nephrology in [place]. Patient notably was recently on Augmentin for surgical site infection and noticed itching with this; have concern for possible AIN versus typical prerenal etiology from fluid losses. Most recent creatinine 3.25 on 07/30 with decent urine output. No need for steroids at this point per nephrology. If patient continues to improve and have adequate urine output, may be okay for discharge home in the next 1 to 2 days. 2. Acute on chronic anemia ? Hemoglobin 7.3 on admit, dropped to 6.6 with IV fluid resuscitation. Baseline hemoglobin recently appears to be 8-9. S/p 2 units of packed red blood cells with repeat hemoglobin 9.2. Given high BUN and positive stool occult sample, had some concern for possible GI bleed. Hemoglobin 8.7 on 07/29 and 8.5 on 07/30. Discussed with GI and with hemoglobin remaining stable, no need for EGD at this point. De-escalated to p.o. PPI twice daily on 07/30. Suspect that patient may have friable mucosa in the GI tract due to recent radiation therapy and may have had minor GI bleed due to this that has not resolved. No need to monitor further CBCs at this point. 3. Squamous of carcinoma of the hypopharynx ? Follows with outpatient oncology. Diagnosed in April 2024. Had selective radiation therapy and carboplatin chemosensitization on 05/24. S/p total laryngectomy with left hemithyroidectomy and left selective neck dissection on 06/20. Tracheostomy in place and PEG tube in for feedings. Plan was for postoperative radiation therapy sometime soon. Saw Oncology in the office on day of admission who noted that given his worsening status and chronic medical issues, he is no longer a candidate for [place] based chemotherapy. Outpatient follow up after discharge. 4. Bilateral lower extremity edema ? Initially with concern for possible DVT but edema improving during hospitalization and no erythema or tenderness to palpation noted. Suspect mild edema may be due to malnutrition. No need for lower extremity Dopplers at this time. 5. Oral thrush ? Nystatin swish and spit 4 times daily for 7 days. 6. Acute on chronic debility ? PT/OT/case management following. Planning to resume home with home health care on discharge. Chronic medical conditions: ? Hyperlipidemia: Holding home atorvastatin. ? Type 2 diabetes mellitus: Holding home Actos. Continue sliding scale insulin while inpatient. DVT prophylaxis: SCDs CODE STATUS: Full code, verified Expected disposition: Home with home health care, 1 to 2 days Total clinical time spent by myself addressing the patient's medical issues, reviewing all the data, and collaborating with patient's care team: 35 minutes. Charges/Coding Visit Charges Inpatient E&M: 27319 Subs Hosp L2
--- NOTE | 2024-07-30 10:52 | CON.PCM.GI_ITS ---
HPI Consult Data Date of Consult: 07/30/24 HPI Narrative Reason for Consultation: Possible GI bleed HPI Narrative: VINITA GRACE, is a 83 M who presented to the emergency department at [facility] on 07/27/2024 at the direction of his oncologist (Dr. Shaikh) for abnormal labs. 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 ENT recommended postoperative radiation and consideration for chemotherapy sensitization therapy. He did have neoadjuvant chemo radiation but only after 1 week of therapy needed urgent total laryngectomy. He was being evaluated by oncology today and plan was to start adjuvant radiation on July 31, 2024 with reevaluation for chemosensitization today by oncology. Unfortunately his labs revealed HANANH on CKD and decreased performance status so he was sent to the emergency department for evaluation of his HANNAH. Based on his finding of HANNAH today, oncology did not feel that he was a candidate for [place] based chemosensitization and current plan is to proceed with adjuvant radiation therapy. He is currently tube feed dependent and states he takes 5 cans daily but of unknown type of tube feed and he is unsure how much free water he is currently getting. Vital signs on presentation demonstrated temperature of 97.6, heart rate 73, respiratory rate 15, blood pressure of 125/56 and pulse ox is 100% on room air. CBC shows a normal white count however he is anemic with a hemoglobin of 7.3 down from 8.4 on 05/24/2024. Platelet count is normal. Chemistry panel shows a normal electrolytes however his BUN is markedly elevated at 132 with a creatinine of 4.02. I was asked to see him because of his drop in hemoglobin . [facility] Medical History CKD stage 3b, GFR 30-44 ml/min HANNAH (acute kidney injury) Iron deficiency anemia due to chronic blood loss Encounter for chemotherapy management Encounter for education Anemia Hearing loss Diabetes Regional lymph node metastasis present [place] High cholesterol Kidney disease Home Medications ?Medication ?Instructions ?Recorded ?Last Taken ?Type aspirin 81 mg tablet,delayed 81 mg feeding tube DAILY heart 05/08/24 Unknown History release (Adult Low Dose Aspirin) atorvastatin 40 mg tablet 40 mg feeding tube DAILY to lower 05/08/24 Unknown History cholesterol pioglitazone 15 mg tablet 15 mg feeding tube DAILY unknown 05/08/24 Unknown History Allergy/AdvReac Type Severity Reaction Status Date / Time No Known Allergies Allergy Verified 07/27/24 14:26 Family History unable to obtain Surgical History History of tracheostomy H/O partial thyroidectomy History of radical neck dissection PEG (percutaneous endoscopic gastrostomy) status History of embolic filter insertion History of left knee replacement History of tonsillectomy Social History (Updated 07/27/24 @ 19:[address] Yuki Noe, DO) household members: spouse housing: house current occupational status: retired Smoking Status: Former smoker quit date: 11/08/69 alcohol intake: former details: Quit drinking in 2012 substance use type: does not use ROS Constitutional Constitutional: Denies anorexia, change in weight, chills, fatigue, fever(s), malaise, night sweats, weakness or other Eyes Eyes: Denies blurry vision, change in eye color, change in vision, discharge from eye(s), double vision, erythema, eye pain, loss of vision or other ENT HEENT: Denies abnormal hearing, dysphagia, ear pain, epistaxis, headache(s), hearing loss, nasal congestion, nasal discharge, post nasal drip, sinus pressure, sore throat or other Cardiovascular Cardiovascular: Denies chest pain, claudication, dyspnea on exertion, edema, lightheadedness, orthopnea, palpitations, paroxysmal nocturnal dyspnea, rapid heart rate, syncope or other Respiratory/Chest Respiratory/Chest: Denies cough, dyspnea, excessive phlegm production, hemoptysis, productive cough, shortness of breath at rest, shortness of breath with exertion, wheezing or other Gastrointestinal Gastrointestinal: Denies abdominal pain, coffee ground emesis, constipation, diarrhea, dyspepsia, hematemesis, hematochezia, loose stools, melena, nausea, vomiting or other Genitourinary Genitourinary: Denies burning urination, difficulty urinating, dysuria, hematuria, nocturia, urinary frequency, urinary hesitancy, urinary incontinence, urinary urgency or other Musculoskeletal Musculoskeletal: Denies arthralgias, back pain, joint pain, joint stiffness, joint swelling, myalgias, neck pain or other Neurologic Neurologic: Denies abnormal gait, abnormal speech, confusion, disequilibrium, dizziness, focal weakness, headache(s), numbness, paresthesias, seizure-like activity, seizures, syncope, tingling, tremor(s) or other Psychiatric Psychiatric: Denies anxiety, depression, homicidal ideation, suicidal ideation or other Endocrine Endocrinology: Denies change in body appearance, cold intolerance, excessive sweating, heat intolerance, polydipsia, polyuria or other Hematologic/Lymphatic Hematologic/Lymphatic: Denies anemia, easy bleeding, easy bruising, lymphadenopathy or other Allergic/Immunologic Allergic/Immunologic: Denies rhinitis, hives, eczemia, asthma or other Physical Exam Narrative Alert awake oriented x 3 no obvious distress no JVD s1s2 no murmurs lungs clear abdomen soft no organomegaly no edema no cyanosis No Mejias Lab / Micro Data 07/30/24 05:32 07/30/24 05:32 Labs: Laboratory Results - last 24 hr 07/29/24 12:19: POC Glucose 112 H 07/29/24 16:23: POC Glucose 155 H 07/30/24 05:32: WBC 8.9, RBC 3.23 L, Hgb 8.5 L, Hct 27.7 L, MCV 85.8, MCH 26.3 L , MCHC 30.7 L, RDW Std Deviation 50.3 H, RDW Coeff of Noa 15.9 H, Plt Count 255, MPV 10.2, Sodium 141, Potassium 3.8, Chloride 111 H, Carbon Dioxide 23.0, Anion Gap 7, BUN 79 H, Creatinine 3.25 H, Estim Creat Clear Calc 14.42, Est GFR (MDRD) Af Amer 24 L, Est GFR (MDRD) Non-Af 19 L, BUN/Creatinine Ratio 24.3 H, Glucose 134 H, Calcium 8.2 L 07/30/24 06:13: POC Glucose 125 H 07/30/24 08:14: POC Glucose 199 H Assessment & Plan Assessment/Plan (1) HANNAH (acute kidney injury): (2) Iron deficiency anemia due to chronic blood loss: (3) Regional lymph node metastasis present: (4) Cancer of overlapping sites of hypopharynx: (5) Edema: (6) Thrush: PLAN: Plan A pleasant 83-year-old gentleman recently diagnosed with 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 A currently has a very elevated BUN/creatinine ratio which is improving and decreasing hemoglobin possibly secondary to upper GI bleed. Differential diagnosis would be stercoral ulcer around the inside of the PEG tube, peptic ulcer disease, angiodysplasia, malignancy. He has been on PPI drip. He also is scheduled to get radiation. Because his hemoglobin is staying stable I would recommend to continue medical therapy and if it does not improve or starts to go down and then we will need to go from endoscopy. The patient and his are okay with this plan. Charges/Coding Visit Charges Inpatient E&M: 22113 Init Hosp L3
[2024-07-30] MEDS: Insulin Lispro 100 UNIT/ML INSULN.PEN SC ×2 (11:45→16:39)
[2024-07-30 12:00] LABS: Bedside Glucose 166 mg/dL (74-106)
[2024-07-30 14:59] VITALS: BP 126/63; PULSE 70; RESP 14; TEMP 37.2; O2SAT 96
[2024-07-30] MEDS: Lansoprazole 15 MG Capsule.DR GT ×2 (15:09→23:58)
[2024-07-30 17:02] LABS: Bedside Glucose 191 mg/dL (74-106)
[2024-07-30 20:34] VITALS: BP 124/63; PULSE 70; RESP 20; TEMP 37.4; O2SAT 95
[2024-07-31 00:34] VITALS: BP 151/69; PULSE 72; RESP 20; TEMP 37.3; O2SAT 95
[2024-07-31 01:07] LABS: Bedside Glucose 120 mg/dL (74-106)
[2024-07-31 05:51] VITALS: BP 150/69; PULSE 75; RESP 20; TEMP 37.3; O2SAT 100
[2024-07-31] MEDS: 0.9% Saline Lock 10 ML Syringe IV ×2 (05:56→15:16)
[2024-07-31 06:54] LABS: Bedside Glucose 121 mg/dL (74-106)
[2024-07-31 08:06] LABS: Anion Gap 8 (5-15); BUN 73 mg/dL (7-18); BUN/Creat Ratio 23.6 RATIO (10-20); Calcium,Total 8.4 mg/dL (8.5-10.1); Chloride 108 mmol/L (98-107); Creatinine, Serum 3.09 mg/dL (0.70-1.30); EST Glomerular Filtration Rate 21 mL/min (>60); Est Glom Filt Rate - Afr Amer 25 mL/min (>60); Estimated Creatinine Clearance 15.17 ml/min; Glucose 119 mg/dL (74-106); Potassium 3.6 mmol/L (3.5-5.1); Sodium Level 140 mmol/L (136-145)
[2024-07-31 10:05] VITALS: BP 162/72; PULSE 73; RESP 20; TEMP 37.1; O2SAT 100
[2024-07-31] MEDS: Lansoprazole 15 MG Capsule.DR GT (10:09)
[2024-07-31] MEDS: Jevity 1.5. 1,000 ML Bottle 240 ML GT ×2 (10:12→14:59)
--- NOTE | 2024-07-31 10:34 | PN.HOSP_ITS ---
Reason for Visit Reason for Visit: Diagnoses Candidal stomatitis (07/27/24) Malignant neoplasm of overlapping sites of hypopharynx (07/27/24) Secondary and unspecified malignant neoplasm of lymph node, unspecified (07/27/24) Iron deficiency anemia secondary to blood loss (chronic) (07/27/24) Acute kidney failure, unspecified (07/27/24) Edema, unspecified (07/27/24) Subjective Subjective Feeling well. Anxious to go home. Objective Data Objective Data Vital Signs: Vital Signs Temp Pulse Resp BP Pulse Ox O2 Del Method 37.1 C 73 20 H 162/72 H 100 Room Air 07/31/24 10:05 07/31/24 10:05 07/31/24 10:05 07/31/24 10:05 07/31/24 10:05 07/31/24 10:27 Oxygen Delivery Method Room Air Weight: 68.1 kg Body Mass Index (BMI) 25.7 Intake & Output: Intake and Output for Last 24 Hours 07/29/24 07/30/24 07/31/24 23:59 23:59 23:59 Intake Total 2180.42 / 2180.42 3070 / 3910 1260 / 1260 Balance 2180.42 / 2180.42 3070 / 3910 1260 / 1260 Lab / Micro Data 07/30/24 05:32 07/31/24 06:59 Labs: Laboratory Results - last 24 hr 07/30/24 11:40: POC Glucose 166 H 07/30/24 16:36: POC Glucose 191 H 07/31/24 00:17: POC Glucose 120 H 07/31/24 06:05: POC Glucose 121 H 07/31/24 06:59: Sodium 140, Potassium 3.6, Chloride 108 H, Carbon Dioxide 24.0, Anion Gap 8, BUN 73 H, Creatinine 3.09 H, Estim Creat Clear Calc 15.17, Est GFR (MDRD) Af Amer 25 L, Est GFR (MDRD) Non-Af 21 L, BUN/Creatinine Ratio 23.6 H, G lucose 119 H, Calcium 8.4 L Micro: Microbiology 07/27/24 19:37 Stool Stool Occult Blood (ZACH) - Final Occult Blood Positive Radiography Diagnostic Testing: Radiology Impression Venous Doppler Study 07/27/24 21:00 Interpretation Summary Deep veins of the bilateral lower extremities are patent and compressible segmentally. There is no evidence of bilateral lower extremity deep vein thrombosis. The bilateral great saphenous veins appear patent and compressible segmentally. Ordering Physician: Yuki Noe Referring Physician: Salty Melchor Performed By: Sruthi Bermudez RVT Physical Exam Const alert and no apparent distress HEENT head/scalp atraumatic Resp Resp Narrative: coarse BS bilatearally. Cardio regular rate, regular rhythm, S1 normal heart sound and S2 normal heart sound GI normal to inspection, nondistended, normoactive bowel sounds, soft to palpation, non-tender and non-distended Assessment & Plan Assessment/Plan (1) HANNAH (acute kidney injury): (2) Iron deficiency anemia due to chronic blood loss: (3) Thrush: (4) Edema: PLAN: Plan HANNAH on CKD stage IIIb, history of IgA nephropathy * Creatinine up to 4.02 (baseline 1.8) continues to improve * Nephrology following. No need for INVASIVE CARDIOLOGIST at this time. Supportive mgmt. 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 * His states that he only takes in about 1 L of fluids daily. Encouraged them to increase that to at least 2 to 3 L of fluid per day. They can either give that to him via his PEG tube or, since he is able to have liquids orally, to do so that way as well. Acute on chronic anemia * s/p 2 units PRBCs * etiologies: stercoral ulcer around the inside of the PEG tube, peptic ulcer disease, angiodysplasia, malignancy. * GI following. No plans for endoscopy as long as Hg stable. * PPI BID Squamous of carcinoma of the hypopharynx * Follows with outpatient oncology. Diagnosed in April 2024. Had selective radiation therapy and carboplatin chemosensitization on 05/24. S/p total laryngectomy with left hemithyroidectomy and left selective neck dissection on 06/20. Tracheostomy in place and PEG tube in for feedings. * Plan was for postoperative radiation therapy sometime soon. Saw Oncology in the office on day of admission who noted that given his worsening status and chronic medical issues, he is no longer a candidate for [place] based chemotherapy. Outpatient follow up after discharge. Oral thrush * Nystatin swish and spit 4 times daily for 7 days. Acute on chronic debility * PT/OT/case management following. Planning to resume home with home health care on discharge. Chronic medical conditions: * Hyperlipidemia: Holding home atorvastatin. * Type 2 diabetes mellitus: Holding home Actos. Continue sliding scale insulin while inpatient. DVT prophylaxis: SCDs CODE STATUS: Full code, verified Expected disposition: Home with home health care today
[2024-07-31] MEDS: Ipratropium/Albuterol Sulfate 3 ML AMPUL.NEB INHALATION (11:16)
[2024-07-31 11:17] VITALS: PULSE 71; RESP 18
--- NOTE | 2024-07-31 11:30 | PN.RENAL_ITS ---
<Statement entered by Kasey Cazares MD - 07/31/24 19:00> I have personally performed a face to face assessment of the patient and have reviewed the SHERLY Note. Cr continues to trend down. Subjective Subjective Sitting on side of bed. No overnight events. Denies any complaints. Per appetite very poor and patient not taking in much liquids. Objective Data Objective Data Vital Signs: Vital Signs Temp Pulse Resp BP Pulse Ox O2 Del Method 98.7 F 71 18 162/72 H 100 Room Air 07/31/24 10:05 07/31/24 11:17 07/31/24 11:17 07/31/24 10:05 07/31/24 10:05 07/31/24 10:27 Oxygen Delivery Method Room Air Weight: 68.1 kg Body Mass Index (BMI) 25.7 Intake & Output: Intake and Output for Last 24 Hours 07/29/24 07/30/24 07/31/24 23:59 23:59 23:59 Intake Total 2180.42 / 2180.42 3070 / 3910 1260 / 1260 Balance 2180.42 / 2180.42 3070 / 3910 1260 / 1260 Lab / Micro Data 07/30/24 05:32 07/31/24 06:59 Labs: Laboratory Results - last 24 hr 07/30/24 11:40: POC Glucose 166 H 07/30/24 16:36: POC Glucose 191 H 07/31/24 00:17: POC Glucose 120 H 07/31/24 06:05: POC Glucose 121 H 07/31/24 06:59: Sodium 140, Potassium 3.6, Chloride 108 H, Carbon Dioxide 24.0, Anion Gap 8, BUN 73 H, Creatinine 3.09 H, Estim Creat Clear Calc 15.17, Est GFR (MDRD) Af Amer 25 L, Est GFR (MDRD) Non-Af 21 L, BUN/Creatinine Ratio 23.6 H, G lucose 119 H, Calcium 8.4 L Micro: Microbiology 07/27/24 19:37 Stool Stool Occult Blood (ZACH) - Final Occult Blood Positive Radiography Diagnostic Testing: Radiology Impression Venous Doppler Study 07/27/24 21:00 Interpretation Summary Deep veins of the bilateral lower extremities are patent and compressible segmentally. There is no evidence of bilateral lower extremity deep vein thrombosis. The bilateral great saphenous veins appear patent and compressible segmentally. Ordering Physician: Yuki Noe Referring Physician: Salty Melchor Performed By: Sruthi Bermudez RVT Physical Exam Narrative Alert awake oriented x 3 s1s2 no murmurs lungs clear abdomen soft, nontender no edema Assessment & Plan Assessment/Plan (1) HANNAH (acute kidney injury): PLAN: History of CKD stage IIIb. Baseline creatinine around 1.8 or so. Came with a creatinine of 4.0. No urinary symptoms prior to coming in. I reviewed his records from [facility]. He was discharged from there on the sixth. At that time his creatinine was 1.8. Renal ultrasound without any hydronephrosis. Urine analysis shows some protein, blood, possible this is a Mejias sample. Hemoglobin was around 7.7 at the time of discharge, stable with a hemoglobin less than 7, s/p PRBC. It is possible this is prerenal HANNAH. He was started on Augmentin for surgical site infection. Has been on it since hospitalization. noticed more itching over the last several days. Differential diagnosis include prerenal from severe anemia versus Augmentin related AIN. -HANNAH superimposed on CKD stage IIIb. Serum creatinine peaked to 4.02 on 07/27, improved to 3.09 mg/dL today. Potassium and acid-base normal. Patient is nonoliguric. Encouraged patient to try and increase fluid intake as best as he can. He is receiving Jevity feeding 5 times daily. Can increase flushes with tube feeding if needed. - CKD stage IIIb followed by Dr. Rendon in [place]. Has appointment in ~4months. 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 Has trach in place and PEG tube for feedings. To undergo radiation treatment today.
[2024-07-31] MEDS: Insulin Lispro 100 UNIT/ML INSULN.PEN SC (11:42)
[2024-07-31 12:03] LABS: Bedside Glucose 179 mg/dL (74-106)
--- NOTE | 2024-07-31 13:39 | DS.PCM_ITS ---
Providers Date of Admission: 07/27/24 Primary Care Physician: Dr. Salty Melchor MD Consultations 07/27/24 21:00 Consult: Nephrology Routine Consulting Provider: Kasey Cazares Reason for Consult: hannah on ckd with history of IgA nephropathy EMERGENT Consult: No Notified: Yes Date Notified: 07/28/24 Time Notified: 08:35 Method of Notification: Answering Service 07/28/24 21:46 Consult: Gastroenterology Routine Consulting Provider: [facility] Reason for Consult: acute on chronic anemia, concern for UGI EMERGENT Consult: No Notified: Yes Date Notified: 07/28/24 Time Notified: 06:11 Method of Notification: Text Reason For Visit: HANNAH/ANEMIA Diagnosis Discharge Diagnosis (1) HANNAH (acute kidney injury): Status: Acute Code(s): N17.9 - Acute kidney failure, unspecified (2) 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 No need for SENIOR BIOSTATISTICIAN at this time. Supportive mgmt. 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 * His states that he only takes in about 1 L of fluids daily. Encouraged them to increase that to at least 2 to 3 L of fluid per day. They can either give that to him via his PEG tube or, since he is able to have liquids orally, to do so that way as well. Acute on chronic anemia * s/p 2 units PRBCs * etiologies: stercoral ulcer around the inside of the PEG tube, peptic ulcer disease, angiodysplasia, malignancy. * GI following. No plans for endoscopy as long as Hg stable. * PPI BID Squamous of carcinoma of the hypopharynx * Follows with outpatient oncology. Diagnosed in April 2024. Had selective radiation therapy and carboplatin chemosensitization on 05/24. S/p total laryngectomy with left hemithyroidectomy and left selective neck dissection on 06/20. Tracheostomy in place and PEG tube in for feedings. * Plan was for postoperative radiation therapy sometime soon. Saw Oncology in the office on day of admission who noted that given his worsening status and chronic medical issues, he is no longer a candidate for [place] based chemotherapy. Outpatient follow up after discharge. Oral thrush * Nystatin swish and spit 4 times daily for 7 days. Acute on chronic debility * PT/OT/case management following. Planning to resume home with home health care on discharge. Chronic medical conditions: * Hyperlipidemia: Holding home atorvastatin. * Type 2 diabetes mellitus: Holding home Actos. Continue sliding scale insulin while inpatient. DVT prophylaxis: SCDs CODE STATUS: Full code, verified Expected disposition: Home with home health care today Medications at Discharge Home Medications atorvastatin 40 mg tablet 40 mg feeding tube DAILY to lower cholesterol 05/08/24 pioglitazone 15 mg tablet 15 mg feeding tube DAILY unknown 05/08/24 acetaminophen 500 mg/15 mL oral liquid 500 mg (15 mL) PO Q6H PRN fever or pain #237 mL 07/31/24 lactose-reduced food with fiber 0.06 gram-1.5 kcal/mL oral liquid (Jevity 1.5 Darnell) 240 ml G-tube 5X/DAY #5,688 mL 07/31/24 lansoprazole 15 mg capsule,delayed release 15 mg G-tube BID #60 caps 07/31/24 nystatin 100,000 unit/mL oral suspension 500,000 unit (5 mL) PO 4X/DAY 7 days #140 mL 07/31/24 Weight / BMI Weight Weight: 68.1 kg Body Mass Index (BMI) 25.7 ABG / Lab / Microbiology Data 07/30/24 05:32 07/31/24 06:59 Laboratory: Laboratory Results - last 24 hr 07/30/24 16:36: POC Glucose 191 H 07/31/24 00:17: POC Glucose 120 H 07/31/24 06:05: POC Glucose 121 H 07/31/24 06:59: Sodium 140, Potassium 3.6, Chloride 108 H, Carbon Dioxide 24.0, Anion Gap 8, BUN 73 H, Creatinine 3.09 H, Estim Creat Clear Calc 15.17, Est GFR (MDRD) Af Amer 25 L, Est GFR (MDRD) Non-Af 21 L, BUN/Creatinine Ratio 23.6 H, G lucose 119 H, Calcium 8.4 L 07/31/24 11:41: POC Glucose 179 H Microbiology: Microbiology 07/27/24 19:37 Stool Stool Occult Blood (ZACH) - Final Occult Blood Positive D/C Instructions Discharge Diet: - Meaningful Use Info Meaningful Use Meaningful Use Diagnoses (Choose all that apply): None applicable Ischemic Stroke Statin Dosing Therapy Reference: STATIN DOSE THERAPY REFERENCE: * Patients > 75 years receive moderate or high dose statin therapy. * Patients 75 years or YOUNGER should receive HIGH intensity statin dose unless contraindicated. You will be required to document reason for non-treatment if statin daily dose does not meet guidelines. HIGH DOSE STATIN THERAPY DAILY Atorvastatin > than or = to 40 mg Rosuvastatin > than or = to 20 mg Amlodipine + Atorvastatin > than or = to 2.5/40 mg Ezetimibe + Simvastatin 10/80 mg Simvastatin 80mg Discharge Plan Admission Admit Date/Time: 07/27/24 19:04 Primary Reason for Your Visit: HANNAH Attending Provider: Babak Fuller Primary Care Provider: Salty Melchor Consulting Providers: Yuki Noe; Kasey Cazares; Jimi Anthony Instructions Additional Instructions / Restrictions: Increase fluid intake to 2 to 3 L of fluid per day. Fluid can be given either orally or through his PEG tube. Speech therapy recommending small sips with sips by straw only, slow rate with head of the bed at 90 degrees and remaining sitting upright for 30 minutes after ingesting food/liquids. Please follow-up with your primary care doctor for evaluation of your follow-up labs make sure you are hemoglobin, your blood count, and your kidney function is improving. Discharge Orders/Prescriptions Prescriptions: New Jevity 1.5 Darnell 0.06 gram-1.5 kcal/mL Liquid 240 ml G-tube 5X/DAY Qty: 5688 0RF nystatin 100,000 unit/mL Suspension 500,000 unit PO 4X/DAY 7 Days Qty: 140 0RF lansoprazole 15 mg Capsule,Delayed Release(Dr/Ec) 15 mg G-tube BID Qty: 60 0RF acetaminophen 500 mg/15 mL liquid 500 mg PO Q6H PRN (Reason: fever or pain) Qty: 237 0RF Continued atorvastatin 40 mg tablet 40 mg feeding tube DAILY pioglitazone 15 mg tablet 15 mg feeding tube DAILY Discontinued aspirin [Adult Low Dose Aspirin] 81 mg tablet,delayed release (DR/EC) 81 mg feeding tube DAILY Referrals / Follow Up: Salty Melchor MD [Primary Care Provider] - Within 2 Weeks Disposition Disposition (needs filled in before D/C Order can be placed): Home Health Service
--- NOTE | 2024-07-31 14:44 | CASEMGMT ---
COLEMAN CM into pt room, pt sitting up in chair dressed. Pt present. Pt is ready to be dc'd. Pt and deny any questions. They are aware that the information from the hospital stay was sent to [facility] and it was confirmed that pt was active. [facility] will be in touch with pt on a time to come out. Pt and demonstrate understanding.
[2024-07-31 15:35] VITALS: BP 134/69; PULSE 64; RESP 18; TEMP 37.1; O2SAT 93
--- NOTE | 2024-07-31 19:15 | PN.GI_ITS ---
Subjective Subjective Patient is scheduled to get a chemotherapy. He has not had any more signs of bleeding at this time. Has been maintained on PPI therapy. Objective Data Objective Data Vital Signs: Vital Signs Temp Pulse Resp BP Pulse Ox O2 Del Method 98.7 F 64 18 134/69 H 93 Room Air 07/31/24 15:35 07/31/24 15:35 07/31/24 15:35 07/31/24 15:35 07/31/24 15:35 07/31/24 15:35 Oxygen Delivery Method Room Air Weight: 150 lb 2.157 oz Body Mass Index (BMI) 25.7 Intake & Output: Intake and Output for Last 24 Hours 07/29/24 07/30/24 07/31/24 23:59 23:59 23:59 Intake Total 2180.42 / 2180.42 3070 / 3910 1780 / 1780 Balance 2180.42 / 2180.42 3070 / 3910 1780 / 1780 Lab / Micro Data 07/30/24 05:32 07/31/24 06:59 Labs: Laboratory Results - last 24 hr 07/31/24 00:17: POC Glucose 120 H 07/31/24 06:05: POC Glucose 121 H 07/31/24 06:59: Sodium 140, Potassium 3.6, Chloride 108 H, Carbon Dioxide 24.0, Anion Gap 8, BUN 73 H, Creatinine 3.09 H, Estim Creat Clear Calc 15.17, Est GFR (MDRD) Af Amer 25 L, Est GFR (MDRD) Non-Af 21 L, BUN/Creatinine Ratio 23.6 H, G lucose 119 H, Calcium 8.4 L 07/31/24 11:41: POC Glucose 179 H Micro: Microbiology 07/27/24 19:37 Stool Stool Occult Blood (ZACH) - Final Occult Blood Positive Physical Exam Narrative Alert awake oriented x 3 no obvious distress no JVD s1s2 no murmurs lungs clear abdomen soft no organomegaly no edema no cyanosis No Mejias Assessment & Plan Assessment/Plan (1) HANNAH (acute kidney injury): (2) Iron deficiency anemia due to chronic blood loss: (3) Thrush: (4) Edema: PLAN: Plan Patient is an 83-year-old male who presented [facility] ED on 07/27/2024 from the oncologist office with abnormal labs. Acute on chronic anemia ? Hemoglobin 7.3 on admit, dropped to 6.6 with IV fluid resuscitation. Baseline hemoglobin recently appears to be 8-9. S/p 2 units of packed red blood cells with repeat hemoglobin 9.2. Given high BUN and positive stool occult sample, had some concern for possible GI bleed. Hemoglobin 8.7 on 07/29 and 8.5 on 07/30. Discussed with GI and with hemoglobin remaining stable, no need for EGD at this point. De-escalated to p.o. PPI twice daily on 07/30. Suspect that patient may have friable mucosa in the GI tract due to recent radiation therapy and may have had minor GI bleed due to this that has not resolved. No need to monitor further CBCs at this point. Charges/Coding Visit Charges Inpatient E&M: 13638 Subs Hosp L3
== END 2024-07-31 15:32 | disposition home health service (06) | DRG 683 ==
LOC: ED 19:15 → MS3 19:35
PROVIDERS: Hospitalist; Admitting Provider Internal Medicine; Emergency Provider Emergency Medicine; PCP Family Medicine
DX: N17.9 Acute kidney failure, unspecified (principal); B37.0 Candidal stomatitis; E44.0 Moderate protein-calorie malnutrition; C77.9 Secondary and unspecified malignant neoplasm of lymph node, unspecified; K92.2 Gastrointestinal hemorrhage, unspecified; Z93.0 Tracheostomy status; C13.8 Malignant neoplasm of overlapping sites of hypopharynx; E11.22 Type 2 diabetes mellitus with diabetic chronic kidney disease; N18.32 Chronic kidney disease, stage 3b; D50.0 Iron deficiency anemia secondary to blood loss (chronic); Z93.1 Gastrostomy status; E78.00 Pure hypercholesterolemia, unspecified; E11.65 Type 2 diabetes mellitus with hyperglycemia; E86.0 Dehydration; R06.82 Tachypnea, not elsewhere classified; Z68.25 Body mass index [BMI] 25.0-25.9, adult; Z79.82 Long term (current) use of aspirin; Z79.84 Long term (current) use of oral hypoglycemic drugs; Z90.02 Acquired absence of larynx; Z87.891 Personal history of nicotine dependence
CPT/HCPCS: 36415; 36591; 51702; 76770; 77300; 77301; 77338; 77386; 80048; 80053; 81001; 82274; 82570; 82728; 82962; 83540; 83550; 83735; 84100; 84300; 84443; 85018; 85025; 85027; 86850; 86900; 86901; 86920; 92526; 92610; 93005; 93970; 94640; 97162; 97166; 97530; 97802; 99284; J7030; J7040; J7120; P9016; A4216